=== PATIENT | female | born 1980 | race Caucasian/White ===

== ENCOUNTER 2017-07-12 11:13 | Emergency (ER) | payer BC ==
[~2017-07-12] VITALS: Ht 160 cm; Wt 60.0 kg
[~2017-07-12 11:13] MED LIST: B-COTAB41 PO; LYSI500C2 PO; NORC7.5T PO; PREN0.01 PO; VITA500015
[2017-07-12 11:22] VITALS: BP 114/75; PULSE 119; RESP 26; TEMP 101.5; O2SAT 98
[2017-07-12] MEDS ORDERED: SODIUM CHLOR 0.9% 1000 ML INJ 1,000 ML IV ONE (11:48)
--- NOTE | 2017-07-12 11:53 | PD ---
HPI Chief Complaint: Headache Time Seen by Provider: 11:40 Travel History International Travel<30 days: No Contact w/Intl Traveler<30days: No Traveled to known affect area: No History of Present Illness HPI 37-year-old female presents to the emergency department for evaluation of fever , headache, body aches, diarrhea that started last night. She states she took a Motrin this morning around 9 AM. Patient reports a mid frontal headache, 10/ 10 started gradually and worsened. Patient states the headache is sharp and throbbing. No radiation. She reports associated photophobia. She does report one similar headache in the past a few weeks ago. Patient has a temperature of 101.5. Patient also reports cough, congestion. She reports multiple episodes of diarrhea. Patient denies any abdominal pain. No chest pain. No shortness of breath. She also reports urinary symptoms. She reports no chronic medical problems and takes no prescribed medications. Moderate severity. No alleviating or exacerbating factors. PFSH Past Medical History ?: Unknown Social History Alcohol Use: No Tobacco Use: No Substance Use: No Allergies-Medications (Allergen,Severity, Reaction): Coded Allergies: No Known Allergies (Unverified Adverse Reaction, Unknown, 07/12/17) Reported Meds & Prescriptions Reported Meds & Active Scripts Active Reported Vitamin D3 (Cholecalciferol) 5,000 Unit Cap 5,000 Units PO DAILY B Complex (B-Complex Vitamins) 1 Cap 1 Cap PO DAILY Ibuprofen 600 Mg Tab 600 Mg PO Q6H PRN Percocet (Oxycodone-Acetaminophen) 7.5-325 mg Tab 1 Tab PO Q4H PRN Lysine (Lysine HCl) 500 Mg Tab Review of Systems Except as stated in HPI: all other systems reviewed are Neg Physical Exam Narrative GENERAL: Well-nourished, well-developed female patient, temperature 101.5. SKIN: Focused skin assessment warm/dry. HEAD: Normocephalic. Atraumatic. ENT: Mucosa pink and moist. No erythema or exudates. No uvular edema. No uvular , palatal, or tonsillar deviation. Airway patent. Nasal turbinates appear normal without nasal blood, purulent drainage or septal hematoma. Bilateral tympanic membranes are clear without erythema or perforation. EYES: No scleral icterus. No injection or drainage. NECK: Supple, trachea midline. No JVD or lymphadenopathy. CARDIOVASCULAR: Regular rate and rhythm without murmurs, gallops, or rubs. RESPIRATORY: Breath sounds equal bilaterally. No accessory muscle use. Lungs sounds are clear to auscultation. GASTROINTESTINAL: Abdomen soft, non-tender, nondistended. MUSCULOSKELETAL: No cyanosis, or edema. BACK: Nontender without obvious deformity. No CVA tenderness. Data Data Last Documented VS Vital Signs Date Time Temp Pulse Resp B/P (MAP) Pulse Ox O2 Delivery O2 Flow Rate FiO2 07/12/17 11:22 101.5 119 26 114/75 (88) 98 Orders Orders Complete Blood Count With Diff (07/12/17 11:48) Basic Metabolic Panel (Bmp) (07/12/17 11:48) Influenzae A/B Antigen (07/12/17 11:48) Chest, Single Ap (07/12/17 11:48) Oximetry (07/12/17 11:48) Acetaminophen (Tylenol) (07/12/17 12:00) Sodium Chloride 0.9% Flush (Ns Flush) (07/12/17 12:00) Urinalysis - C+S If Indicated (07/12/17 11:48) Ed Urine Pregnancytest Poc (07/12/17 11:48) Prochlorperazine Inj (Compazine Inj) (07/12/17 12:00) Diphenhydramine Inj (Benadryl Inj) (07/12/17 12:00) Sodium Chlor 0.9% 1000 Ml Inj (Ns 1000 M (07/12/17 11:48) Lactic Acid Sepsis Protocol (07/12/17 11:53) Urine Culture (07/12/17 12:15) Labs Laboratory Tests Test 07/12/17 12:15 07/12/17 12:30 Urine Color LIGHT-YELLOW Urine Turbidity CLEAR Urine pH 8.0 Urine Specific [place] 1.006 Urine Protein NEG mg/dL Urine Glucose (UA) NEG mg/dL Urine Ketones 10 mg/dL Urine Occult Blood TRACE Urine Nitrite NEG Urine Bilirubin NEG Urine Urobilinogen LESS THAN 2.0 MG/DL Urine Leukocyte Esterase LARGE Urine RBC 1 /hpf Urine WBC 67 /hpf Urine Squamous Epithelial Cells <1 /hpf Urine Bacteria MOD /hpf Urine Mucus FEW /lpf Microscopic Urinalysis Comment CULTURE INDICATED White Blood Count 11.4 TH/MM3 Red Blood Count 3.97 MIL/MM3 Hemoglobin 13.2 GM/DL Hematocrit 36.8 % Mean Corpuscular Volume 92.8 FL Mean Corpuscular Hemoglobin 33.4 PG Mean Corpuscular Hemoglobin Concent 36.0 % Red Cell Distribution Width 12.0 % Platelet Count 184 TH/MM3 Mean Platelet Volume 9.8 FL Neutrophils (%) (Auto) 85.7 % Lymphocytes (%) (Auto) 7.1 % Monocytes (%) (Auto) 6.9 % Eosinophils (%) (Auto) 0.1 % Basophils (%) (Auto) 0.2 % Neutrophils # (Auto) 9.7 TH/MM3 Lymphocytes # (Auto) 0.8 TH/MM3 Monocytes # (Auto) 0.8 TH/MM3 Eosinophils # (Auto) 0.0 TH/MM3 Basophils # (Auto) 0.0 TH/MM3 CBC Comment AUTO DIFF Differential Comment AUTO DIFF CONFIRMED Platelet Estimate NORMAL Platelet Morphology Comment NORMAL Red Cell Morphology Comment NORMAL Blood Urea Nitrogen 10 MG/DL Creatinine 0.70 MG/DL Random Glucose 87 MG/DL Calcium Level 9.0 MG/DL Sodium Level 136 MEQ/L Potassium Level 4.3 MEQ/L Chloride Level 105 MEQ/L Carbon Dioxide Level 20.6 MEQ/L Anion Gap 10 MEQ/L Estimat Glomerular Filtration Rate 95 ML/MIN Lactic Acid Level 0.7 mmol/L MDM Medical Decision Making Medical Screen Exam Complete: Yes Emergency Medical Condition: Yes Medical Record Reviewed: Yes Differential Diagnosis Influenza versus pneumonia versus viral syndrome versus UTI versus meningitis Narrative Course 37-year-old female presents to the emergency department for evaluation of body aches, fever, headache, diarrhea that started last night. She does report one similar headache in the past. IV access is established. CBC, BMP, lactic acid , influenza swab, UA, chest x-ray are ordered and pending. CBC shows leukocytosis 11.4. BMP shows no acute abnormality. Lactic acid is 0.7. Influenza is negative. UA shows large leukocyte esterase, 67 WBC, moderate bacteria. Chest x-ray shows no acute disease. On reevaluation, patient states her headache was resolved. She would like to go home. My attending physician, Dr. Becerril, also examined patient. She agrees with plan and disposition. Patient will be discharged prescription for Macrobid for UTI. She is followed primary care physician or return here for any acute worsening of symptoms. Diagnosis Primary Impression: Urinary tract infection Qualified Codes: N30.00 - Acute cystitis without hematuria Referrals: Primary Care Physician call for appointment Patient Instructions: General Instructions, Urinary Tract Infection in Women ( ED) Additional Instructions: Take antibiotic as directed until gone. Tylenol every 4 hours as needed for pain/fever. Ibuprofen every 6-8 hours as needed for pain/fever. Follow-up with your primary care physician. Return to the emergency department for any acute worsening of symptoms. Med/Other Pt SpecificInfo: Prescription(s) given Scripts Nitrofurantoin Monohydrate Macrocrystals (Macrobid) 100 Mg Capsule 100 MG PO BID for Infection for 7 Days, #14 CAP 0 Refills Prov: Cailin Evans 07/12/17 Disposition: 01 DISCHARGE HOME Condition: Stable Cailin Evans Jul 12, 2017 11:53
[2017-07-12] MEDS ORDERED: diphenhydrAMINE HCL 50 MG/ML VIAL IVP ONE (12:00)
[2017-07-12] MEDS ORDERED: PROCHLORPERAZINE INJ 10 MG/2 ML VIAL IVP ONE (12:00)
[2017-07-12] MEDS ORDERED: ACETAMINOPHEN 325 MG TAB PO ONE (12:00)
[2017-07-12] MEDS ORDERED: SODIUM CHLORIDE 0.9% FLUSH 10 ML FLUSH IVF PRN (12:00)
[2017-07-12] MEDS ORDERED: CHOL5000 PO (12:30)
[2017-07-12] MEDS ORDERED: LYSI500T12 (12:30)
[2017-07-12] MEDS ORDERED: PERC7.5T13 PO (12:30)
[2017-07-12] MEDS ORDERED: VITACAP7 PO (12:30)
[2017-07-12] MEDS ORDERED: IBUP-232 PO (12:30)
--- NOTE | 2017-07-12 12:44 | RADRPT ---
EXAM DATE/TIME: 07/12/2017 12:10 [facility] COMPARISON: No previous studies available for comparison. INDICATIONS : Fever, headaches, diarrhea today MEDICAL HISTORY : None. SURGICAL HISTORY : None. ENCOUNTER: Initial ACUITY: 1 day PAIN SCORE: 0/10 LOCATION: Bilateral chest FINDINGS: A single view of the chest demonstrates the lungs to be symmetrically aerated without evidence of mas s, infiltrate or effusion. The cardiomediastinal contours are unremarkable. Osseous structures are intact. CONCLUSION: No acute disease. Enmanuel Frazier MD FACR on July 12, 2017 at 12:42 Board Certified Radiologist. This report was verified electronically.
[2017-07-12 12:51] LABS: AUTOMATED NEUTROPHIL # 9.7 TH/MM3 (1.8-7.7); BASOPHIL % 0.2 % (0.0-2.0); EOSINOPHIL % 0.1 % (0.0-4.0); HEMATOCRIT 36.8 % (35.0-46.0); HEMOGLOBIN 13.2 GM/DL (11.6-15.3); LYMPH % 7.1 % (9.0-44.0); LYMPHOCYTE # 0.8 TH/MM3 (1.0-4.8); MEAN CELL VOLUME 92.8 FL (80.0-100.0); MEAN CORPUSCULAR HEMOGLOBIN 33.4 PG (27.0-34.0); MEAN PLATELET VOLUME 9.8 FL (7.0-11.0); MONO % 6.9 % (0.0-8.0); MONOCYTE # 0.8 TH/MM3 (0-0.9); NEUT % 85.7 % (16.0-70.0); PLATELET COUNT 184 TH/MM3 (150-450); RED BLOOD COUNT 3.97 MIL/MM3 (4.00-5.30); WHITE BLOOD COUNT 11.4 TH/MM3 (4.0-11.0)
[2017-07-12 12:54] LABS: BACTERIA, URINE MOD /hpf; BILIRUBIN, URINE NEG (NEG); BLOOD, URINE TRACE (NEG); GLUCOSE,URINE NEG (NEG); KETONE, URINE 10 mg/dL (NEG); MUCUS URINE FEW /lpf (OCC); NITRITE,URINE NEG (NEG); SQUAMOUS EPITHELIAL CELL URINE <1 /hpf (0-5); URINE COLOR LIGHT-YELLOW (YELLW/STRAW); URINE LEUKOCYTE ESTERASE LARGE (NEG)
[2017-07-12 13:31] LABS: BICARBONATE 20.6 MEQ/L (21.0-32.0); CREATININE 0.7 MG/DL (0.50-1.00)
[2017-07-12] MEDS ORDERED: MACR100C2 PO (14:13)
== END 2017-07-12 15:05 | disposition home or self-care (01) ==
LOC: NEPE 11:13
DX: N39.0 Urinary tract infection, site not specified (principal); B96.20 Unspecified Escherichia coli [E. coli] as the cause of diseases classified elsewhere; R51 Headache; D72.829 Elevated white blood cell count, unspecified; R19.7 Diarrhea, unspecified
CPT/HCPCS: 71045; 80048; 81001; 83605; 84703; 85025; 87077; 87086; 87186; 87804; 96361; 96374; 96375; 99284; J0780; J1200; J7030